=== PATIENT | male | born 1935 | race African-American/Black ===

== ENCOUNTER 2016-10-31 09:11 | Emergency (ER) | payer MEDICARE, OTHER ==
[~2016-10-31] VITALS: Wt 110.0 kg
[2016-10-31] MEDS ORDERED: SOD CHLORIDE 0.9% 500 ML IV STA (10:08)
[2016-10-31] MEDS ORDERED: TAMS0.4C2 PO (10:21)
[2016-10-31] MEDS ORDERED: BENA40TA41 PO (10:21)
[2016-10-31] MEDS ORDERED: ALLO300T2 PO (10:22)
[2016-10-31] MEDS ORDERED: HYDR50TA3 PO (10:22)
[2016-10-31] MEDS ORDERED: IBUP800T25 PO (10:23)
[2016-10-31] MEDS ORDERED: ATEN50TA PO (10:23)
[2016-10-31] MEDS ORDERED: MEVA40 PO (10:23)
--- NOTE | 2016-10-31 10:46 | RADRPT ---
PROCEDURE: XR Chest. CLINICAL INDICATION: Abdominal pain TECHNIQUE: Chest AP portable. COMPARISON: No comparison available. FINDINGS: The mediastinal structures are unremarkable. There is calcification of the thoracic aorta (consiste nt with atherosclerosis). The heart is normal in size and configuration. The pulmonary vascularity i s normal. There is mild bibasilar subsegmental atelectasis. The pleural spaces are unremarkable. T he osseous structures are unremarkable. IMPRESSION: Mild bibasilar subsegmental atelectasis. RPTAT: [facility] .Chago Hunter MD, MD Date Time Electronically viewed and signed by .Chago Hunter MD, on 10/31/2016 10:46 .B/
[2016-10-31 10:56] LABS: BASOPHILS % 0.5 % (0.0-2.0); EOSINOPHILS # 0.2 10^3/ul (0.0-0.5); EOSINOPHILS % 3.9 % (0.0-7.0); HEMATOCRIT 34.7 % (42.0-52.0); HEMOGLOBIN 11.6 g/dl (14.0-18.0); LYMPHOCYTES # 2.1 10^3/ul (0.8-2.9); LYMPHOCYTES % 44.6 % (15.0-51.0); MEAN CORPUSCULAR HEMOGLOBIN 29.8 pg (29.0-33.0); MEAN CORPUSCULAR HGB CONC 33.5 g/dl (32.0-37.0); MEAN CORPUSCULAR VOLUME 89.1 fl (82.0-101.0); MEAN PLATELET VOLUME 7.7 fl (7.4-10.4); MONOCYTE # 0.6 10^3/ul (0.3-0.9); MONOCYTES % 12.3 % (0.0-11.0); NEUTROPHIL # 1.8 10^3/ul (1.6-7.5); NEUTROPHILS % 38.7 % (39.0-77.0); PLATELET COUNT 177 10^3/UL (140-440); RED BLOOD COUNT 3.89 10^6/ul (4.70-6.10); UNCORRECTED WBC 4.7 10^3/ul (4.8-10.8); WHITE BLOOD COUNT 4.7 10^3/ul (4.8-10.8)
[2016-10-31 10:59] LABS: CONDITION 1; LH ANALYZER COMMENTS 1
[2016-10-31 11:02] LABS: CHLORIDE 106 mmol/L (97-110); SODIUM 143 mmol/L (135-144)
[2016-10-31 11:04] LABS: INR 1.02; PROTIME 13.4 Sec (12.2-14.2)
[2016-10-31 11:05] LABS: ANION GAP 21 (8-16); CARBON DIOXIDE 20 mmol/L (21-31); CREATININE 2.69 mg/dl (0.61-1.24); PARTIAL THROMBOPLASTIN TIME 26.8 Sec (25.0-35.0)
[2016-10-31 11:06] LABS: BLOOD UREA NITROGEN 68 mg/dl (7-20); CALCIUM 8.8 mg/dl (8.4-10.2); GLUCOSE 98 mg/dl (70-220)
[2016-10-31 11:19] LABS: TROPONIN-I < 0.012 ng/ml (0.00-0.12)
[2016-10-31] MEDS ORDERED: OSLT75C PO (11:51)
[2016-10-31] MEDS ORDERED: ACET500C5 PO (11:51)
[2016-10-31] MEDS ORDERED: ALBU18HF INHALATION (11:55)
--- NOTE | 2016-10-31 11:58 | ERD ---
ER Documentation Chief Complaint Date/Time DATE: 10/31/16 TIME: 11:56 Chief Complaint dizziness for the past week. no neuro def, recent head injury 3wks ago. HPI Very pleasant 81-year-old male who presents with generalized weakness. He describes approximately 2-3 days of symptoms that include generalized malaise weakness and dry nonproductive cough. The patient did report at triage a head injury 3 weeks ago but he was evaluated. He has been having frequent falls and has had thorough workup including MRI imaging. No falls since then. The patient is unsure if he had his flu shot this year. He denies any fevers, no chest pain no exertional symptoms. ROS All systems reviewed and are negative except as per history of present illness. Medications Home Meds Active Scripts Albuterol Sulfate* (Ventolin HFA*) 18 Gm Hfa.aer.ad, 2 PUFF INHALATION Q4H, #1 INHALER Prov:TOM ORTIZ MD 10/31/16 Acetaminophen* (Tylophen*) 500 Mg Capsule, 1 CAP PO Q6H Y for PAIN AND OR ELEVATED TEMP, #20 CAP Prov:TOM ORTIZ MD 10/31/16 Oseltamivir Phosphate* (Tamiflu*) 75 Mg Capsule, 75 MG PO BID for 5 Days, CAP Prov:TOM ORTIZ MD 10/31/16 Reported Medications Ibuprofen* (Motrin*) 800 Mg Tab, 800 MG PO TID Y for PAIN, TAB 10/31/16 Atenolol* (Atenolol*) 50 Mg Tablet, 50 MG PO BID, #60 TAB 10/31/16 Lovastatin (Lovastatin) 40 Mg Tablet, 40 MG PO HS, TAB 10/31/16 Allopurinol* (Allopurinol*) 300 Mg Tablet, 300 MG PO BID, TAB 10/31/16 Hydrochlorothiazide* (Hydrochlorothiazide*) 50 Mg Tab, 50 MG PO DAILY, #30 TAB 10/31/16 Tamsulosin Hcl* (Tamsulosin Hcl*) 0.4 Mg Cap.er.24h, 0.4 MG PO DAILY, CAP 10/31/16 Benazepril Hcl* (Benazepril Hcl*) 40 Mg Tablet, 60 MG PO DAILY, #30 TAB 10/31/16 Allergies Allergies: Coded Allergies: morphine (Verified Allergy, Intermediate, N/V, 10/31/16) PMhx/Soc History of Surgery: Yes (BACK SX) Anesthesia Reaction: No Hx Neurological Disorder: No Hx Respiratory Disorders: No Hx Cardiac Disorders: No Hx Psychiatric Problems: No Hx Miscellaneous Medical Probl: Yes (HTN) Hx Alcohol Use: No Hx Substance Use: No Hx Tobacco Use: No FmHx Family History: No diabetes Physical Exam Vitals Vital Signs Date Time Temp Pulse Resp B/P Pulse Ox O2 Delivery O2 Flow Rate FiO2 10/31/16 10:20 98.5 53 18 127/66 Room Air 10/31/16 09:14 98.4 65 21 112/53 98 Physical Exam General: Well developed, well nourished, no acute distress Head: Normocephalic, atraumatic. Eyes: Pupils equally reactive, EOM intact ENT: Moist mucous membranes Neck: Supple, no lymphadenopathy Respiratory: Lungs clear bilaterally, no distress Cardiovascular: RRR, no murmurs, rubs, or gallops Abdominal: Soft, non-tender, non-distended, no peritoneal signs : Deferred MSK: No edema, no unilateral swelling, 5/5 strength Neurologic: Alert and oriented, moving all extremities, normal speech, no focal weakness, no cerebellar signs Skin: No rash Psych: Normal mood Result Diagram: 10/31/16 1030 10/31/16 1030 Results 24 hrs Laboratory Tests Test 10/31/16 10:30 Activated Partial Thromboplast Time 26.8Sec Anion Gap 21 Basophils # 0.010^3/ul Basophils % 0.5% Blood Morphology Comment Blood Urea Nitrogen 68mg/dl Calcium Level 8.8mg/dl Carbon Dioxide Level 20mmol/L Chloride Level 106mmol/L Creatinine 2.69mg/dl Eosinophils # 0.210^3/ul Eosinophils % 3.9% Glucose Level 98mg/dl Hematocrit 34.7% Hemoglobin 11.6g/dl INR International Normalized Ratio 1.02 Lymphocytes # 2.110^3/ul Lymphocytes % 44.6% Mean Corpuscular Hemoglobin 29.8pg Mean Corpuscular Hemoglobin Concent 33.5g/dl Mean Corpuscular Volume 89.1fl Mean Platelet Volume 7.7fl Monocytes # 0.610^3/ul Monocytes % 12.3% Neutrophils # 1.810^3/ul Neutrophils % 38.7% Nucleated Red Blood Cells # 0.010^3/ul Nucleated Red Blood Cells % 0.0/100WBC Platelet Count 65521^3/UL Potassium Level 4.0mmol/L Prothrombin Time 13.4Sec Prothrombin Time Ratio 1.0 Red Blood Count 3.8910^6/ul Red Cell Distribution Width 15.0% Sodium Level 143mmol/L Troponin I < 0.012ng/ml White Blood Count 4.710^3/ul Current Medications Medications (Trade) Dose Ordered Sig/Anny Route PRN Reason Start Time Stop Time Status Last Admin Dose Admin Sodium Chloride (NS) 500 ml @ 500 mls/hr Q1H STAT IV 10/31/16 10:08 10/31/16 11:07 DC 10/31/16 10:47 Procedures/MDM EKG, MONITORS, & DIAGNOSTIC IMAGING: EKG: I reviewed and interpreted a 12-lead EKG. Rhythm: Normal sinus rhythm Ectopy: None Intervals: No abnormalities ST segments: No elevations or depressions T waves: No contiguous inversions Chest x-ray: I reviewed and interpreted a 1 view of the chest Mediastinum: No enlargement Cardiac silhouette: No cardiomegaly Airspace: Clear lung mayen bilaterally without evidence of pneumothorax Bones: No evidence of fracture LAB INTERPRETATION: Slightly low white count, creatinine of 2.69 around baseline negative troponin MEDICAL DECISION MAKING: The patient presents the emergency room with cough congestion and generalized malaise. A fall 3 weeks ago has been evaluated. No evidence of head injury currently. Nonfocal neuro exam. The patient's dizziness is generally described as weakness. He has no evidence of sepsis. His cough and congestion are likely secondary to viral syndrome. Low clinical concern for cardiac etiology given no exertional symptoms. The patient is also extremely well- appearing in the emergency department. ER COURSE: The patient was given gentle fluid bolus. His Lipitor testing is unrevealing. Creatinine is consistent with baseline. Again, this is most consistent with viral syndrome. No exertional symptoms. Initiation of Tamiflu would be reasonable in this age range. The patient is to follow-up with his primary care physician and return for any worsening symptoms. The patient is already being followed up for frequent falls. No indication that these are worsening at this time. I kept the patient and/or family informed of laboratory and diagnostic imaging results throughout the emergency room course. DISPOSITION PLAN: We discussed follow up with the patient's primary care doctor within 24 to 48 hours as needed. We also discussed return to the emergency room for worsening symptoms or worsening condition. Discharge Medications: Albuterol, Tamiflu, Tylenol Departure Diagnosis: Primary Impression: Cough Additional Impression: Weakness Condition: Stable Patient Instructions: Generalized Weakness, Viral Syndrome (Adult) Additional Instructions: Call your primary care doctor TOMORROW for an appointment during the next 1 WEEK.Tell the printing technician that you were referred from this facility.See the doctor sooner or return here if your condition worsens before your appointment time. TOM ORTIZ MD Oct 31, 2016 11:58
[2016-10-31 12:08] VITALS: BP 142/66; PULSE 58; RESP 16; TEMP 98.2
== END 2016-10-31 12:10 | disposition home or self-care (01) ==
LOC: E/R 09:11
DX: R05 Cough (principal); I10 Essential (primary) hypertension; R40.2142 Coma scale, eyes open, spontaneous, at arrival to emergency department; R40.2252 Coma scale, best verbal response, oriented, at arrival to emergency department; R40.2362 Coma scale, best motor response, obeys commands, at arrival to emergency department; R10.9 Unspecified abdominal pain
CPT/HCPCS: 71010; 80048; 84484; 85025; 85610; 85730; 93005; 99285; J7040